=== PATIENT | female | born 1970 | race Two or more races ===

== ENCOUNTER 2018-03-11 12:22 | Emergency (ER) | payer MEDICAID ==
--- NOTE | 2018-03-11 12:49 | EDPHY ---
H & P Time Seen by Provider: 03/11/18 14:53 HPI/ROS: Chief complaint. Diarrhea HPI. Patient is 47-year-old female with diarrhea that began last night. About 2 hr after diarrhea she developed abdominal pain and crampy EM anterior chest pain as well as back pain. The chest pain is described as crampy in the left area of her chest. Worse with movement. She also has mid back pain. She has upper abdominal pain that is described also as crampy. Diarrhea without blood. No vomiting. Apparent bad food exposure last night. Otherwise no recent travel. She feels chills and achy. No shortness of breath. No fever or cough. No unusual leg pain or swelling. ROS 10 systems were reviewed and negative with the exception of the elements mentioned in the history of present illness Past Medical/Surgical History: Healthy Social History: , nonsmoker, no alcohol Smoking Status: Never smoked Physical Exam: General Appearance: Alert well-developed female moderate distress vital signs are stable Eyes: Pupils equal and round no pallor or injection. ENT, Mouth: Mucous membranes are moist. Respiratory: There are no retractions, lungs are clear to auscultation. Cardiovascular: Regular rate and rhythm. Gastrointestinal: Abdomen is soft with some mild tenderness in the epigastric area. Normal bowel sounds. No masses. Neurological: Awake and alert, sensory and motor exams grossly normal. Skin: Warm and dry, no rashes. Musculoskeletal: Neck is supple nontender. Diffuse tenderness on both sides of the lower thoracic spine but not over the T-spine to palpation Extremities symmetrical, full range of motion. Psychiatric: Patient is oriented X 3, there is no agitation. Constitutional: Initial Vital Signs Temperature (C) 37 C 03/11/18 12:42 Heart Rate 71 03/11/18 12:42 Respiratory Rate 20 03/11/18 12:42 Blood Pressure 120/80 03/11/18 12:42 O2 Sat (%) 96 03/11/18 12:42 O2 Delivery Mode Room Air Allergies/Adverse Reactions: No Known Allergies Allergy (Unverified 03/11/18 12:42) Home Medications: Medication Instructions Recorded NK [No Known Home Meds] 03/11/18 Medical Decision Making - Diagnostics EKG Interpretation: EKG interpreted by me shows normal sinus rhythm normal interval and axis. QRS shows LVH by voltage. Slight ST elevation in V2 and V3 likely due to LVH. Lateral T-wave inversion in V4 and V5. Rate is 73 No previous EKGs for comparison Imaging Results: Imaging Impressions Chest X-Ray 03/11/18 13:06 Impression: Negative portable chest Abdomen Ultrasound 03/11/18 13:19 Impression: 1. Normal right upper quadrant sonogram. Chest x-ray interpreted by me is normal Gallbladder ultrasound reviewed by me and discussed with Dr. Benedict is normal Procedures: IV normal saline. Monitor. Toradol IV. ED Course/Re-evaluation: Point of care troponin is 0 Point of care CBC shows a 16.6 white blood cell count. Hematocrit 46.5 Point of care chemistry panel is normal Lipase is couriered to [facility] Re-evaluation 2:45 p.m. Patient is feeling much better. Her pain is much improved. The patient and her family and I discussed imaging lab EKG results. We discussed treatment plan including criteria for return importance of follow-up and further evaluation. They expressed understanding and agreement Differential Diagnosis: This appears to be likely viral diarrheal illness. The pain is likely myalgias. I considered acute coronary syndrome or pneumonia. I considered pancreatitis and gallbladder disease as well - Data Points Laboratory Results: 03/11/18 03/11/18 03/11/18 13:35 13:28 13:00 POC Sodium 141 mEq/L mEq/L (135-145) POC Potassium 3.4 mEq/L mEq/L (3.3-5.0) POC Chloride 102.0 mEq/L mEq/L (97-110) POC Total CO2 21 mEq/L L mEq/L (22-31) POC BUN 14 mg/dL mg/dL (7-23) POC Creatinine 0.8 mg/dL mg/dL (0.6-1.0) POC Glucose 143 mg/dL H mg/dL (70-100) POC Calcium 9.9 mg/dL mg/dL (8.5-10.4) POC Troponin I 0.00 ng/mL ng/mL (0.00-0.08) Lipase 46 IU/L IU/L (23-300) Medications Given: Discontinued Medications Sodium Chloride (Ns) 1,000 mls @ 0 mls/hr IV EDNOW ONE; Wide Open PRN Reason: Protocol Stop: 03/11/18 12:53 Last Admin: 03/11/18 13:05 Dose: 1,000 mls Ketorolac Tromethamine (Toradol) 30 mg IVP EDNOW ONE Stop: 03/11/18 13:00 Last Admin: 03/11/18 13:26 Dose: 30 mg Point of Care Test Results: CBC CBC Collection Date 03/11/18 CBC Collection Time 12:50 WBC 16.6 RBC 5.44 HGB 16.2 HCT 46.5 PLT 223 Neut # 16.1 Neut 96.9 LYMPH # 0.3 LYMPH 1.7 Other WBC 1.4 MCV 85.5 Chemistry 03/11/18 03/11/18 13:35 13:28 POC Sodium 141 mEq/L mEq/L (135-145) POC Potassium 3.4 mEq/L mEq/L (3.3-5.0) POC Chloride 102.0 mEq/L mEq/L (97-110) POC Total CO2 21 mEq/L L mEq/L (22-31) POC BUN 14 mg/dL mg/dL (7-23) POC Creatinine 0.8 mg/dL mg/dL (0.6-1.0) POC Glucose 143 mg/dL H mg/dL (70-100) POC Calcium 9.9 mg/dL mg/dL (8.5-10.4) POC Troponin I 0.00 ng/mL ng/mL (0.00-0.08) Urine Dip Collection Date 03/11/18 Collection Time 13:25 Specific [place] (1.002-1.030) 1.030 PH (5.0-7.5) 5.5 Leukocytes (Negative) Negative Nitrites (Negative) Negative Protein (Negative) Negative Glucose (Negative) Negative Ketones (Negative) Negative Urobilnogen (0.2-1.0 EU) 0.2 Bilirubin (Negative) Negative Blood (Negative) Negative Departure - Departure Disposition: Home, Routine, Self-Care Clinical Impression: Diarrhea Qualifiers: Diarrhea type: unspecified type Qualified Code(s): R19.7 - Diarrhea, unspecified Condition: Good Instructions: Loperamide (By mouth), Acute Diarrhea (ED) Additional Instructions: Frequent, small sips fluids. Gradual diet advancement Tylenol 1000 mg every 6 hr, ibuprofen 600 mg every 6 hr for achiness and fever May use loperamide that can be purchased at the grocery store to help control diarrhea Return for worsening symptoms Recheck in 2 days if not improved Referrals: [facility] [Other] - 2-3 days, if not improved
[2018-03-11] MEDS ORDERED: NS 1,000 ML IV ONE (12:52)
[2018-03-11] MEDS ORDERED: KETOROLAC 30 MG/1 ML SDV IVP ONE (12:59)
[2018-03-11 15:06] VITALS: BP 130/69
--- NOTE | 2018-03-12 13:05 | CPEKG ---
Test Reason : OPEN Blood Pressure : / mmHG Vent. Rate : 073 BPM Atrial Rate : 074 BPM P-R Int : 143 ms QRS Dur : 085 ms QT Int : 305 ms P-R-T Axes : 071 069 041 degrees QTc Int : 336 ms Sinus rhythm Left ventricular hypertrophy Anterior ST elevation, probably due to LVH Confirmed by You Henriquez ([id number]) on 03/12/2018 1:05:12 PM Referred By: Confirmed By:You Henriquez
== END 2018-03-11 15:04 | disposition home or self-care (01) ==
LOC: CED 12:22
DX: R19.7 Diarrhea, unspecified (principal); E86.9 Volume depletion, unspecified
CPT/HCPCS: 71045-PO; 76705-PO; 80048-PO; 84484-PO; 96374; J1885